=== PATIENT | male | born 1995 | race Two or more races ===

== ENCOUNTER 2017-12-29 15:46 | Emergency (ER) | payer SELFPAY ==
[~2017-12-29] VITALS: Ht 172.7 cm; Wt 84.8 kg
[2017-12-29] MEDS ORDERED: NKM (15:54)
[2017-12-29 16:00] VITALS: BP 128/67
--- NOTE | 2017-12-29 16:12 | Emergency Room Report ---
History of Present Illness General Chief Complaint: Chest Pain Source: Patient Present Illness HPI 22-year-old male patient presents ER complaining of chest pain radiating to his left arm for the past few hours. Reports chest pain began this morning when he woke upReports pain radiates to left arm. Denies radiation to back. denies back or abdominal pain.. Denies history of heart attack or stroke. Denies history of heart disease. Eyes history of anxiety. Reports pain is reproducible. Denies injury or trauma. Reports intermittent history of smoking cigarettes and marijuana. Denies fever, shortness of breath, abdominal pain, headache. Reports hx of acid reflux and eating spicy foods, denies taking medication for relief of symptoms. Reports runny nose and congestion during this time. Allergies: Coded Allergies: No Known Allergies (Unverified , 12/29/17) Patient History Past Medical History: see triage record Reviewed Nursing Documentation: PMH: Agreed; PSxH: Agreed Nursing Documentation-PMH Past Medical History: No Stated History Review of Systems All Other Systems: negative except mentioned in HPI Physical Exam Vital Signs Date Time Temp Pulse Resp B/P (MAP) Pulse Ox O2 Delivery O2 Flow Rate FiO2 12/29/17 15:51 98.2 92 18 128/67 97 Room Air Sp02 EP Interpretation: reviewed, normal General Appearance: well appearing, no apparent distress, alert, GCS 15, non- toxic Head: normocephalic, atraumatic Eyes: bilateral eye normal inspection, bilateral eye PERRL ENT: hearing grossly normal, normal pharynx, no angioedema, normal voice, TMs + canals normal, uvula midline, moist mucus membranes, nasal congestion Neck: full range of motion Respiratory: lungs clear, normal breath sounds, no rhonchi, no respiratory distress, no accessory muscle use, no wheezing, speaking full sentences Cardiovascular #1: regular rate, rhythm, no edema Cardiovascular #2: 2+ radial (R), 2+ radial (L) Gastrointestinal: non tender, soft, no mass, non-distended, no guarding, no pulsatile mass, no rebound Genitourinary: no CVA tenderness Musculoskeletal: back normal, digits/nails normal, gait/station normal, normal range of motion, non-tender, no calf tenderness, Nichole's Sign negative Neurologic: alert, oriented x3, responsive, motor strength/tone normal, sensory intact Psychiatric: mood/affect normal Medical Decision Making PA Attestation Dr. Horner is my supervising Physician whom patient management has been discussed with. Diagnostic Impression: Primary Impression: Non-cardiac chest pain Additional Impressions: Acid reflux Upper respiratory infection ER Course Pt. presents to the ED c/o chest pain. Ddx considered but are not limited to ID, arrhythmia, DVT, PE, pneumonia, bronchitis, costochondritis, anxiety, GERD, acid reflux, bronchitis, upper respiratory infection, AAA. No calf swelling, negative Nichole's sign, low suspicion for DVT pr PE per Well's criteria. Low suspicion for cardiac cause of pain. Will order labs to rule out. Vital signs: are WNL, pt. is afebrile Ordered X-ray, labs, troponin, EKG and pain medication. ER COURSE Labs shows no elevation in WBC or LFTs UA unremarkable Troponin negative UDS positive for THC, remainder negative. CXR negative for acute disease EKG no ST elevations or atrial fibrillation Followup with primary care provider, discuss referral to cardiology. patient denies shortness of breath, EKG and chest x-ray unremarkable, troponin negative, low suspicion for ID or CHF. symptoms likely related to acid reflux and upper respiratory infection. Followup with PCP, discuss referral to GI and hiv cts specialist. ER precautions given. DISCHARGE: At this time pt. is stable for d/c to home. Patient is resting comfortably, in no acute distress, nontoxic appearing, talking without difficulty. Will provide printed patient care instructions, and any necessary prescriptions. Patient instructed to follow with primary care provider in 1-3 days. Followup with primary care provider for further pain medication rx. 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 Care plan and follow up instructions have been discussed with the patient prior to discharge. Take medications as directed. Patient questions asked and answered. Patient reports understanding and agreement to treatment plan. ER precautions given, patient instructed to return to ER immediately for any new or worsening of symptoms. - Please note that this Emergency Department Report was dictated using [email or web address] technology software, occasionally this can lead to erroneous entry secondary to interpretation by the dictation equipment. Labs Test 12/29/17 16:20 12/29/17 16:25 White Blood Count 5.4 K/UL (4.8-10.8) Red Blood Count 4.75 M/UL (4.70-6.10) Hemoglobin 15.2 G/DL (14.2-18.0) Hematocrit 44.2 % (42.0-52.0) Mean Corpuscular Volume 93 FL (80-99) Mean Corpuscular Hemoglobin 31.9 PG (27.0-31.0) Mean Corpuscular Hemoglobin Concent 34.3 G/DL (32.0-36.0) Red Cell Distribution Width 11.4 % (11.6-14.8) Platelet Count 300 K/UL (150-450) Mean Platelet Volume 6.7 FL (6.5-10.1) Neutrophils (%) (Auto) 66.5 % (45.0-75.0) Lymphocytes (%) (Auto) 22.2 % (20.0-45.0) Monocytes (%) (Auto) 8.8 % (1.0-10.0) Eosinophils (%) (Auto) 0.7 % (0.0-3.0) Basophils (%) (Auto) 1.7 % (0.0-2.0) Sodium Level 139 MMOL/L (136-145) Potassium Level 3.5 MMOL/L (3.5-5.1) Chloride Level 101 MMOL/L (98-107) Carbon Dioxide Level 26 MMOL/L (21-32) Anion Gap 12 mmol/L (5-15) Blood Urea Nitrogen 13 mg/dL (7-18) Creatinine 1.0 MG/DL (0.55-1.30) Estimat Glomerular Filtration Rate > 60 mL/min (>60) Glucose Level 103 MG/DL (74-106) Calcium Level 9.0 MG/DL (8.5-10.1) Total Bilirubin 0.5 MG/DL (0.2-1.0) Aspartate Amino Transf (AST/SGOT) 32 U/L (15-37) Alanine Aminotransferase (ALT/SGPT) 33 U/L (12-78) Alkaline Phosphatase 97 U/L (46-116) Troponin I 0.000 ng/mL (0.000-0.056) Total Protein 8.2 G/DL (6.4-8.2) Albumin 3.7 G/DL (3.4-5.0) Globulin 4.5 g/dL Albumin/Globulin Ratio 0.8 (1.0-2.7) Urine Color Yellow Urine Appearance Clear Urine pH 5 (4.5-8.0) Urine Specific [place] 1.020 (1.005-1.035) Urine Protein 2+ (NEGATIVE) Urine Glucose (UA) Negative (NEGATIVE) Urine Ketones 2+ (NEGATIVE) Urine Blood 2+ (NEGATIVE) Urine Nitrite Negative (NEGATIVE) Urine Bilirubin Negative (NEGATIVE) Urine Urobilinogen 1 MG/DL (0.0-1.0) Urine Leukocyte Esterase Negative (NEGATIVE) Urine RBC 2-4 /HPF (0 - 0) Urine WBC 0 /HPF (0 - 0) Urine Squamous Epithelial Cells None /LPF (NONE/OCC) Urine Bacteria None /HPF (NONE) Urine Opiates Screen Negative (NEGATIVE) Urine Barbiturates Screen Negative (NEGATIVE) Phencyclidine (PCP) Screen Negative (NEGATIVE) Urine Amphetamines Screen Negative (NEGATIVE) Urine Benzodiazepines Screen Negative (NEGATIVE) Urine Cocaine Screen Negative (NEGATIVE) Urine Marijuana (THC) Screen Positive (NEGATIVE) EKG Diagnostic Results Rate: normal Rhythm: NSR ST Segments: no acute changes ASA given to the pt in ED: Yes BJORN Scribe Tatianna Davis PA-C Rhythm Strip Diag. Results EP Interpretation: yes Rate: 86 Rhythm: NSR, no PVC's, no ectopy PA Scribe Tatianna Davis PA-C Chest X-Ray Diagnostic Results Chest X-Ray Diagnostic Results : Chest X-Ray Ordered: Yes # of Views/Limited/Complete: 1 View Indication: Chest Pain EP Interpretation: Yes PA Xray: Interpretation reviewed, by supervising MD, and agrees with findings. Interpretation: no consolidation, no effusion, no pneumothorax, no acute cardiopulmonary disease Impression: No acute disease PA Scribe Tatianna Davis PA-C Last Vital Signs Date Time Temp Pulse Resp B/P (MAP) Pulse Ox O2 Delivery O2 Flow Rate FiO2 12/29/17 15:51 98.2 92 18 128/67 97 Room Air Status: improved Disposition: HOME, SELF-CARE Condition: Stable Scripts Loratadine/Pseudoephedrine (CLARITIN-D 12 HOUR TABLET) 1 Each Tab.er.12h 1 TAB ORAL EVERY 12 HOURS, #24 TAB Prov: Frank Davis P.AAlexys 12/29/17 Fluticasone Propionate* (FLUTICASONE PROPIONATE*) 16 Gm [place].susp 1 SPRAY NASAL TWICE A DAY, #16 GM Prov: Frank Davis 12/29/17 Acetaminophen* (TYLENOL EXTRA STRENGTH*) 500 Mg Tablet 500 MG ORAL Q8H PRN for Prn Headache/Temp > 101, #30 TAB 0 Refills Prov: Frank Davis 12/29/17 Famotidine (PEPCID AC) 10 Mg Tablet 10 MG PO BID, #30 TAB Prov: Frank Davis 12/29/17 Patient Instructions: Heartburn, Nonspecific Chest Pain, Upper Respiratory Infection, Adult, [id number] Additional Instructions: Followup with primary care provider in 3 -5 days for further treatment and referral to GI. Discuss testing for H.pylori. Discuss referral to cardiology for further treatment and evaluation. Keep food journal of foods eaten and times of symptom onset. Take medications as directed. Patient questions asked and answered. Drink fluids as tolerated to prevent dehydration. Take Tylenol OTC for pain, [place]. Avoid spicy foods, avoid dairy, avoid alcohol. Do not eat late night meals. Elevate head of bed when sleeping. ER precautions given, patient instructed to return to ER immediately for any new or worsening of symptoms including but not limited to chest pain, SOB, abdominal pain, blood in vomit. Frank Davis Dec 29, 2017 16:12
[2017-12-29] MEDS ORDERED: Lidocaine 2% Visc 15ml soln ORAL ONE (16:30)
[2017-12-29] MEDS ORDERED: Mylanta II UD 30ml ORAL ONE (16:30)
[2017-12-29] MEDS ORDERED: Dicyclomine HCl 10mg/5ml oral soln ORAL ONE (16:30)
[2017-12-29 17:02] LABS: BASOPHILS % (AUTO) 1.7 % (0.0-2.0); EOSINOPHILS % (AUTO) 0.7 % (0.0-3.0); HEMATOCRIT 44.2 % (42.0-52.0); HEMOGLOBIN 15.2 G/DL (14.2-18.0); LYMPHOCYTES % (AUTO) 22.2 % (20.0-45.0); MEAN CORPUSCULAR VOLUME 93 FL (80-99); MONOCYTES % (AUTO) 8.8 % (1.0-10.0); NEUTROPHILS % (AUTO) 66.5 % (45.0-75.0); PLATELET COUNT 300 K/UL (150-450); RED BLOOD COUNT 4.75 M/UL (4.70-6.10); RED CELL DISTRIBUTION WIDTH 11.4 % (11.6-14.8); WHITE BLOOD COUNT 5.4 K/UL (4.8-10.8)
[2017-12-29 17:11] LABS: APPEARANCE,URINE CLEAR; BILIRUBIN, URINE NEGATIVE (NEGATIVE); GLUCOSE, URINE (UA) NEGATIVE (NEGATIVE); KETONES,URINE 2+ (NEGATIVE); LEUKOCYTE ESTERASE ,URINE NEGATIVE (NEGATIVE); NITRITE,URINE NEGATIVE (NEGATIVE); PH,URINE 5 (4.5-8.0); PROTEIN,URINE 2+ (NEGATIVE); UROBILINOGEN,URINE 1 MG/DL (0.0-1.0)
[2017-12-29 17:14] LABS: COLOR,URINE YELLOW
[2017-12-29 17:16] LABS: ALANINE AMINOTRANSFERASE 33 U/L (12-78); ALBUMIN 3.7 G/DL (3.4-5.0); ALBUMIN/GLOBULIN RATIO 0.8 (1.0-2.7); ALKALINE PHOSPHATASE 97 U/L (46-116); ANION GAP 12 mmol/L (5-15); ASPARTATE AMINO TRANSFERASE 32 U/L (15-37); BILIRUBIN,TOTAL 0.5 MG/DL (0.2-1.0); CARBON DIOXIDE 26 MMOL/L (21-32); CHLORIDE 101 MMOL/L (98-107); POTASSIUM 3.5 MMOL/L (3.5-5.1); SODIUM 139 MMOL/L (136-145)
--- NOTE | 2017-12-29 17:25 | Diagnostic Imaging Report ---
Indication: Chest pain Technique: One view of the chest Comparison: none Findings: Lungs and pleural spaces are clear. Heart size is normal Impression: No acute process
[2017-12-29 17:27] LABS: BLOOD UREA NITROGEN 13 mg/dL (7-18)
[2017-12-29] MEDS ORDERED: TYLENOL EXTRA500 MG ORAL (18:05)
[2017-12-29] MEDS ORDERED: FLUTICASONE PRO16 G1 NASAL (18:05)
[2017-12-29] MEDS ORDERED: CLARITIN-D 121 EAC1 ORAL (18:05)
[2017-12-29] MEDS ORDERED: PEPCID AC10 MG PO (18:05)
[2017-12-29 18:10] VITALS: BP 128/67
== END 2017-12-29 18:15 | disposition home or self-care (01) ==
LOC: EMR 18:12
DX: R07.9 Chest pain, unspecified (principal); K21.9 Gastro-esophageal reflux disease without esophagitis; J06.9 Acute upper respiratory infection, unspecified; Z87.891 Personal history of nicotine dependence
CPT/HCPCS: 36415; 71045; 80053; 80307; 81003; 84484; 85025; 99284